=== PATIENT | male | born 1970 | race African-American/Black ===

== ENCOUNTER 2016-09-03 13:19 | Emergency (ER) | payer OTHER ==
[~2016-09-03] VITALS: Ht 175.3 cm; Wt 81.7 kg
[~2016-09-03 13:19] MED LIST: AMOXICILLIN500 M1 PO; DIPHENHIST50 MG PO; LISINOPRIL5 MG PO
[2016-09-03] MEDS ORDERED: NORCO 5-325 TA1 EACH PO (15:37)
[2016-09-03 15:53] VITALS: BP 176/96
== END 2016-09-03 15:54 | disposition home or self-care (01) ==
LOC: ER 13:19
DX: S13.4XXA Sprain of ligaments of cervical spine, initial encounter (principal); M54.5 Low back pain; Z98.890 Other specified postprocedural states; I10 Essential (primary) hypertension; F17.210 Nicotine dependence, cigarettes, uncomplicated; V89.2XXA Person injured in unspecified motor-vehicle accident, traffic, initial encounter; Y93.89 Activity, other specified; Y92.89 Other specified places as the place of occurrence of the external cause; Y99.8 Other external cause status

== ENCOUNTER 2019-12-04 19:53 | Emergency (ER) | payer OTHER ==
[~2019-12-04] VITALS: Ht 170.2 cm; Wt 104.3 kg
[~2019-12-04 19:53] MED LIST changes: +NORCO 5-325 TA1 EACH PO
[2019-12-04] MEDS ORDERED: NF (20:16)
[2019-12-04 21:38] VITALS: BP 201/134
== END 2019-12-04 21:40 | disposition home or self-care (01) ==
LOC: ER 19:53
DX: S06.0X0A Concussion without loss of consciousness, initial encounter (principal); G89.29 Other chronic pain; M54.5 Low back pain; I10 Essential (primary) hypertension; F17.210 Nicotine dependence, cigarettes, uncomplicated; Z79.899 Other long term (current) drug therapy; V49.9XXA Car occupant (driver) (passenger) injured in unspecified traffic accident, initial encounter; Y93.89 Activity, other specified; Y92.89 Other specified places as the place of occurrence of the external cause; Y99.2 Volunteer activity